=== PATIENT | female | born 1950 | race Caucasian/White ===

== ENCOUNTER 2016-08-25 11:08 | Emergency (ER) | payer OTHER ==
[~2016-08-25] VITALS: Ht 162.6 cm; Wt 111.1 kg
[2016-08-25] MEDS ORDERED: FISH OIL 1,2001 EACH PO (12:09)
[2016-08-25] MEDS ORDERED: CALTRATE 600 +1 EACH PO (12:09)
[2016-08-25] MEDS ORDERED: VITAMIN D34000 UNIT PO (12:10)
[2016-08-25] MEDS ORDERED: VITAMIN E400 UNI1 PO (12:11)
[2016-08-25] MEDS ORDERED: FLUOXETINE HCL40 M1 PO (12:11)
[2016-08-25] MEDS ORDERED: CLONAZEPAM1 M2 PO (12:11)
[2016-08-25] MEDS ORDERED: FIBER500 MG PO (12:12)
[2016-08-25] MEDS ORDERED: ATORVASTATIN CA20 M1 PO (12:12)
[2016-08-25] MEDS ORDERED: LEVOTHYROXINE100 MC1 PO (12:13)
[2016-08-25] MEDS ORDERED: DAILY MULTIPLE1 EACH PO (12:13)
[2016-08-25] MEDS ORDERED: ASPIRIN81 M4 PO (12:13)
[2016-08-25] MEDS ORDERED: GLIMEPIRIDE4 M1 PO (12:14)
[2016-08-25] MEDS ORDERED: GABAPENTIN600 M1 PO (12:14)
--- NOTE | 2016-08-25 12:27 | ED PSYCHIATRIC COMPLAINT ---
History of Present Illness General Chief Complaint: Psychiatric Related Complaint Stated Complaint: +SI Source: patient Exam Limitations: no limitations Allergies Coded Allergies: albuterol (From PROVENTIL HFA) (Intermediate, TACHYCARDIA 08/25/16) cefaclor (From CECLOR) (Intermediate, RASH 08/25/16) clarithromycin (From BIAXIN) (Intermediate, RASH 08/25/16) Uncoded Allergies: THEODURE (Intermediate, TACHYCARDA 08/25/16) Reconcile Medications Aspirin (Aspirin*) 81 MG TAB.CHEW 1 TAB PO DAILY HEART HEALTH (Reported) Atorvastatin Calcium 20 MG TABLET 1 TAB PO DAILY CHOLESTEROL (Reported) Calcium Carbonate/Vitamin D3 (Caltrate 600 + D Tablet) 600 MG-800 TABLET 1 TAB PO DAILY SUPPLEMENT (Reported) Cholecalciferol (Vitamin D3) (Vitamin D3) 4,000 UNIT CAPSULE 1 CAP PO DAILY SUPPLEMENT (Reported) Clonazepam 1 MG TABLET 1 TAB PO BID MENTAL HEALTH (Reported) Fish Oil/Dha/Epa (Fish Oil 1,200 MG Fish Oil) 1,200 MG-144 MG-216 MG CAPSULE 1 CAP PO DAILY SUPPLEMENT (Reported) Fluoxetine HCl 40 MG CAPSULE 2 CAP PO DAILY MENTAL HEALTH (Reported) Gabapentin 600 MG TABLET 1 TAB PO TID UNKNOWN (Reported) Glimepiride 4 MG TABLET 1 TAB PO DAILY DM (Reported) Levothyroxine Sodium 100 MCG TABLET 1 TAB PO DAILY AC THYROID (Reported) Methylcellulose (Fiber) 500 MG TABLET 1 TAB PO DAILY SUPPLEMENT (Reported) Multivitamin (Daily Multiple Vitamin) 1 EACH TABLET 1 TAB PO DAILY SUPPLEMENT (Reported) Vitamin E (Dl,Tocopheryl Acet) (Vitamin E) 400 UNIT CAPSULE 1 CAP PO DAILY SUPPLEMENT (Reported) Triage Note: C/O FEELING DEPRESSED, STATES HER SON TRIED TO CUT HIS WRISTS LAST WEEK AND IS HOSPITALIZED AT [facility]; THE SITUATION IS GIVING HER FLASHBACKS RE: HER OWN PREVIOUS ATTEMPTS AT SUICIDE, (OVER DOSING ON PILLS). STATES HE HAS BEEN THINKING ABOUT JUMPING IN FRONT OF CAR. SENT IN BY KENTRELL MCDANIEL (THERAPIST) ([facility]). PT NEEDS WALKER FOR AMBULATION DUE TO BILATERAL KNEE REPLACMENTS. Triage Nurses Notes Reviewed? yes HPI: 66-year-old female with depression here with complaints of suicidal thoughts. No organized attempt, but she has had chronic bouts of depression throughout her life. She was previously attempted suicide by taking pills. She currently states that over the last month or so she has been more depressed since her son tried to commit suicide about a month ago. He then, this past week, slit his wrists and is currently admitted at [facility] for depression. She feels as though that his recent episodes of depression and suicide attempts have caused her to be significant only more depressed. She denies any drug or alcohol use. She sees a psychiatric counselor regularly who recommended she comes in for evaluation. She has no medical complaints (OBDULIA REYES) Vital Signs & Intake/Output Vital Signs & Intake/Output Vital Signs Date Time Temp Pulse Resp B/P Pulse O2 O2 Flow FiO2 Ox Delivery Rate 08/26 0905 96.9 86 18 152/82 96 08/26 0629 98.1 69 18 144/88 93 Room Air 08/25 2233 98.4 89 16 141/65 90 Room Air 08/25 1829 84 16 150/76 92 Room Air 08/25 1457 95.6 72 16 145/76 90 Room Air 08/25 1326 Room Air 08/25 1126 96.7 86 20 138/81 96 Room Air ED Intake and Output 08/26 0000 08/25 1200 Intake Total Output Total Balance Patient 245 lb Weight Past History Travel History Traveled to [place] past 21 day No Medical History Any Pertinent Medical History? see below for history Cardiovascular: hyperlipidemia Respiratory: asthma Musculoskeletal: osteoarthritis Psychiatric: bipolar disease Endocrine: diabetes Blood Disorders: NONE Cancer(s): NONE Surgical History Surgical History: knee replacement Psychosocial History What is your primary language Luxembourger Tobacco Use: Never used ETOH Use: occasional use Family History Hx Contributory? No (OBDULIA REYES) Review of Systems Review of Systems Constitutional: Reports: see HPI. EENTM: Reports: no symptoms. Respiratory: Reports: no symptoms. Cardiovascular: Reports: no symptoms. GI: Reports: no symptoms. Genitourinary: Reports: no symptoms. Musculoskeletal: Reports: no symptoms. Skin: Reports: no symptoms. Neurological/Psychological: Reports: see HPI. Hematologic/Endocrine: Reports: no symptoms. Immunologic/Allergic: Reports: no symptoms. All Other Systems: Reviewed and Negative (OBDULIA REYES) Physical Exam Physical Exam General Appearance: well developed/nourished Head: atraumatic Eyes: Bilateral: PERRL, EOMI. 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 CRISIS CONSULT OBTAINED (LORE CHILDRESS,CHERYL Spain) Progress Hand-Off Endorsed To: LORE CHILDRESS,CHERYL Spain Endorsed Time: 1946 Pending: other (CRISIS RE EVAL IN AM) (OBDULIA REYES) Plan of Care: Orders Procedure Date/time Status Consistent Carbohydrate 2 08/26 B Active ED CRISIS PSYCH CONSULT 08/25 1301 Active URINE DRUG SCREEN FOR ER ONLY 08/25 1223 Complete URINALYSIS 08/25 1223 Complete ETHANOL 08/25 1223 Complete COMPREHENSIVE METABOLIC PANEL 08/25 1223 Complete CBC WITHOUT DIFFERENTIAL 08/25 1223 Complete Laboratory Tests 08/25/16 1410: Methadone Screen 48, Barbiturate Screen < 60, Ur Phencyclidine Scrn < 6.00, Amphetamines Screen < 100, U Benzodiazepines Scrn < 85, Urine Cocaine Screen < 50, Urine Cannabis Screen < 5.00, Urine Color YEL, Urine Clarity CLEAR, Urine pH 6.0, Ur Specific [place] 1.010, Urine Protein NEG, Urine Ketones NEG, Urine Nitrite NEG, Urine Bilirubin NEG, Urine Urobilinogen 0.2, Ur Leukocyte Esterase LARGE H, Ur Microscopic SEDIMENT EXAMINED, Urine RBC 1-3, Urine WBC 5-10 H, Ur Epithelial Cells RARE, Urine Bacteria MANY H, Urine Hemoglobin NEG, Urine Glucose NEG 08/25/16 1240: Anion Gap 8, Estimated GFR > 60, BUN/Creatinine Ratio 20.0, Glucose 82, Calcium 9.6, Total Bilirubin 0.6, AST 37 H, ALT 40, Alkaline Phosphatase 108, Total Protein 7.0, Albumin 3.8, Globulin 3.2, Albumin/Globulin Ratio 1.2, CBC w Diff NO MAN DIFF REQ, RBC 4.23, MCV 88.0, MCH 29.4, RDW 13.9, MPV 7.5, Gran % 57.4, Lymphocytes % 30.0, Monocytes % 7.9, Eosinophils % 4.3, Basophils % 0.4, Absolute Granulocytes 4.3, Absolute Lymphocytes 2.3, Absolute Monocytes 0.6, Absolute Eosinophils 0.3, Absolute Basophils 0, PUBS MCHC 33.4, Serum Alcohol < 10.0 Comments: 08/25/2016 5:35:12 PM patient has been evaluated by crisis and will be observed overnight. Hopefully she will be then discharged to an IOP appointment. (GWEN CHILDRESS,ROSINA Rucker) Differential Diagnosis: drug intoxication, drug overdose, drug withdrawal, electrolyte abnormality Hand-Off Endorsed To: NANCY GOYAL MD Endorsed Time: 0700 Pending: consult (CRISIS RE-EVAL) (LORE CHILDRESS,CHERYL Spain) Comments: Cleared by psychiatry for discharge. (NANCY GOYAL MD) Departure Departure Disposition: STILL A PATIENT Condition: Stable Clinical Impression Primary Impression: Depression Referrals: CHUN DEVRIES MD (PCP/Family) Departure Forms: Customer Survey General Discharge Information (OBDULIA REYES) Departure Time of Disposition: 936 Additional Instructions: Follow up with the recommendations of the psychiatric mental health nurse PA/TOUCHER UP Co-Sign Statement Statement: ED Attending supervision documentation- x I saw and evaluated the patient. I have also reviewed all the pertinent lab results and diagnostic results. I agree with the findings and the plan of care as documented in the PA's/TOUCHER UP's documentation. [] I have reviewed the ED Record and agree with the PA's/TOUCHER UP's documentation. [] Additions or exceptions (if any) to the PAs/TOUCHER UP's note and plan are summarized below: [] (NANCY GOYAL MD)
[2016-08-25 12:54] LABS: ABSOLUTE BASOPHIL COUNT 0 /CUMM (0.0-0.2); ABSOLUTE EOSINOPHIL COUNT 0.3 /CUMM (0.0-0.7); ABSOLUTE GRANULOCYTE CT 4.3 /CUMM (1.4-6.5); ABSOLUTE LYMPH COUNT 2.3 /CUMM (1.2-3.4); ABSOLUTE MONOCYTE COUNT 0.6 /CUMM (0.10-0.60); BASOPHIL % 0.4 % (0.0-2.0); EOSINOPHIL % 4.3 % (0-5); GRANULOCYTE % 57.4 % (42.2-75.2); HEMATOCRIT 37.3 % (37-47); MEAN CORPUSCULAR HGB 29.4 PG (27.0-31.0); MEAN CORPUSCULAR HGB CONC 33.4 G/DL (33.0-37.0); MEAN PLATELET VOLUME 7.5 FL (7.4-10.4); PLATELET COUNT 396 /CUMM (130-400); RBC DISTRIBUTION WIDTH 13.9 % (11.5-14.5); RED BLOOD CELL CT 4.23 /CUMM (4.20-5.40); WHITE BLOOD CELL COUNT 7.5 /CUMM (4.8-10.8)
--- NOTE | 2016-08-25 17:09 | ED PSYCH CRISIS CONSULTATION ---
See Addendum Crisis Consult Basic Assessment Date of Consult: 08/25/16 Responsible Person/Accompanied By: nasir Hawley APRN and ARMANDO Syed Insurance Authorization: Insurance #1: Insurance name: VICTOR M STEWART Phone number: Policy number: [id number] Group number: Authorization number: ED Provider: Patient's ED Provider: REGGIE REYES Primary Care Physician: Patient's PCP: CHUN HERRERA MD PCP's Phone Number: Current Psychiatrist: Nasir Hawley APRN Chief Complaint: Psychiatric Related Complaint Patient's Quote: "My son recently cut himself and makes me think of my SI attempt." Present Illness: Pt is 66 yo female with hx of a suicide attempt and SI. Per collateral information from her PCP and [employer] she has hx of bi-polar and borderline tendancies. Pt. is currently stressed about her son going into [facility] for cutting himself. She reported that his attempts have triggered her memories of her own SI attempt. She noted both her adult sons move in with her to [facility] 1 BR apartment. She is violating her lease with them both staying there. Her sons are Reggie and Gutierrez, one is a drug addict and the other with dx wiht schizophrenia. Pt reported she is ambivalent about them staying with her as she is unclear if she needs help with ADL's. Pt. reported one suicide attempt 8 years ago in [place] she drank a bottle of alcohol and took her "pills". The pt's recently in March 2016 due to diabetes. Pt stated her main concern is that she needs a break and has passive SI with no plan. Per Nasir Hawley APRN, she recommended Pt come to due to recent stressors of her adult sons moving in with her. She noted an increase in disorganzied thinking. Nasir reported that she had borederline tendancies in the past ie. abruptly moving to [place] for treatment 4/5 years ago. She stated this put a big financial stressor on the pt at that time. Per Nasir, the pt had neurospych testing completed that identified memory deficits. She is currently taking Prozac, Serquel and Klonapin. Nasir stated she is unclear if the Klonapin is contributing to some of the memory deficits. Nasir stated she would feel comfortable with pt receiving higher LOC such as IOP treatment. Per collateral information from Dr. Herrera: PCP verified pt has serious physical issues right now and needs to use a walker. PCP stated she is a bright bright woman and is suffering from memory difficulties. She has a fracture on her right foot. PCP is treating the whole family . PCP inidicates family difficulties and pt's "rough life" and would recommend IOP level of care. PCP did not report any incidents of SI. Patient's Address: [address] [place] [id number] Other Phone Number: Who Do You Live With? Son Family/Informants Interviewed: Family was not available Allergies - Coded Allergies: albuterol (From PROVENTIL HFA) (Intermediate, TACHYCARDIA 08/25/16) cefaclor (From CECLOR) (Intermediate, RASH 08/25/16) clarithromycin (From BIAXIN) (Intermediate, RASH 08/25/16) Uncoded Allergies: THEODURE (Intermediate, TACHYCARDA 08/25/16) Current Medications - Scheduled Medications Aspirin (Aspirin*) 81 MG TAB.CHEW 1 TAB PO DAILY HEART HEALTH (Reported) Entered as Reported by NATHANIEL BELCHER on 08/25/16 1213 Atorvastatin Calcium 20 MG TABLET 1 TAB PO DAILY CHOLESTEROL #90 (Reported) Entered as Reported by NATHANIEL BELCHER on 08/25/16 1212 Calcium Carbonate/Vitamin D3 (Caltrate 600 + D Tablet) 600 MG-800 TABLET 1 TAB PO DAILY SUPPLEMENT (Reported) Entered as Reported by NATHANIEL BELCHER on 08/25/16 1209 Cholecalciferol (Vitamin D3) (Vitamin D3) 4,000 UNIT CAPSULE 1 CAP PO DAILY SUPPLEMENT (Reported) Entered as Reported by NATHANIEL BELCHER on 08/25/16 1210 Clonazepam 1 MG TABLET 1 TAB PO BID MENTAL HEALTH #60 (Reported) Entered as Reported by NATHANIEL BELCHER on 08/25/16 1211 Fish Oil/Dha/Epa (Fish Oil 1,200 MG Fish Oil) 1,200 MG-144 MG-216 MG CAPSULE 1 CAP PO DAILY SUPPLEMENT (Reported) Entered as Reported by NATHANIEL BELCHER on 08/25/16 1209 Fluoxetine HCl 40 MG CAPSULE 2 CAP PO DAILY MENTAL HEALTH #60 (Reported) Entered as Reported by NATHANIEL BELCHER on 08/25/16 1211 Gabapentin 600 MG TABLET 1 TAB PO TID UNKNOWN #270 (Reported) Entered as Reported by NATHANIEL BELCHER on 08/25/16 1214 Glimepiride 4 MG TABLET 1 TAB PO DAILY DM #90 (Reported) Entered as Reported by NATHANIEL BELCHER on 08/25/16 1214 Levothyroxine Sodium 100 MCG TABLET 1 TAB PO DAILY AC THYROID #90 (Reported) Entered as Reported by NATHANIEL BELCHER on 08/25/16 1213 Methylcellulose (Fiber) 500 MG TABLET 1 TAB PO DAILY SUPPLEMENT (Reported) Entered as Reported by NATHANIEL BELCHER on 08/25/16 1212 Multivitamin (Daily Multiple Vitamin) 1 EACH TABLET 1 TAB PO DAILY SUPPLEMENT (Reported) Entered as Reported by NATHANIEL BELCHER on 08/25/16 1213 Vitamin E (Dl,Tocopheryl Acet) (Vitamin E) 400 UNIT CAPSULE 1 CAP PO DAILY SUPPLEMENT (Reported) Entered as Reported by NATHANIEL BELCHER on 08/25/16 1211 Laboratory Results: Laboratory Tests 08/25/16 1410: Methadone Screen 48, Barbiturate Screen < 60, Ur Phencyclidine Scrn < 6.00, Amphetamines Screen < 100, U Benzodiazepines Scrn < 85, Urine Cocaine Screen < 50, Urine Cannabis Screen < 5.00, Urine Color YEL, Urine Clarity CLEAR, Urine pH 6.0, Ur Specific [place] 1.010, Urine Protein NEG, Urine Ketones NEG, Urine Nitrite NEG, Urine Bilirubin NEG, Urine Urobilinogen 0.2, Ur Leukocyte Esterase LARGE H, Ur Microscopic SEDIMENT EXAMINED, Urine RBC 1-3, Urine WBC 5-10 H, Ur Epithelial Cells RARE, Urine Bacteria MANY H, Urine Hemoglobin NEG, Urine Glucose NEG 08/25/16 1240: Anion Gap 8, Estimated GFR > 60, BUN/Creatinine Ratio 20.0, Glucose 82, Calcium 9.6, Total Bilirubin 0.6, AST 37 H, ALT 40, Alkaline Phosphatase 108, Total Protein 7.0, Albumin 3.8, Globulin 3.2, Albumin/Globulin Ratio 1.2, CBC w Diff NO MAN DIFF REQ, RBC 4.23, MCV 88.0, MCH 29.4, RDW 13.9, MPV 7.5, Gran % 57.4, Lymphocytes % 30.0, Monocytes % 7.9, Eosinophils % 4.3, Basophils % 0.4, Absolute Granulocytes 4.3, Absolute Lymphocytes 2.3, Absolute Monocytes 0.6, Absolute Eosinophils 0.3, Absolute Basophils 0, PUBS MCHC 33.4, Serum Alcohol < 10.0 (EMANUEL NAVA,SHANA Hernandez.) Addendum Addendum Pt requesting evening medications (clonazepam and seroquel). Pt reports feeling well and is aware of plan to h/o and re-assess in the morning. Pt thinks an IOP would be beneficial. 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 Physical Limitations (Interventions): Pt needs to use a walker and has a right foot fracture. Psychiatric Treatment History Psych Treatment Psychiatric Treatment Yes Inpatient Treatment Yes Outpatient Treatment Yes Location of Treatment [facility] and IP in [place] 8 yrs ago. Reason for Treatment psychiatric and overdose. Dates of Treatment 8 years ago Response to Treatment Pt has been medication compliant. Diagnosis by History: Depression and borderline personality disorder. Pt has been in DBT treatment in [place]. Substance Use/Abuse History Drug Use/Abuse Substances Used/Abused No Substance Abuse Treatment Substance Abuse Treatment Past Substance Abuse [place] No (EMANUEL NAVA,SHANA Hernandez.) Current Mental Status Mental Status Orientation: Confused Affect: Anxious, Angry, Depressed Speech: Hyper-verbal, Perseveration Neuro-vegetative: Concentration Poor, Helpless, Loss of Interest Appearance Appearance- Dress/Hygiene: Pt was dressed in [facility] gown. Eye contact minimal. Behaviors Thought Process: Disorganized, Tangential Memory: Impaired Insight: Fair SI/HI Risk Assessment Past Suicidal Ideation/Attempts Yes Current Suicidal Ideation/Att No Past Homicidal Ideation/Att: No Current Homicidal Ideation/Attempts No Degree of Intent: None Risk Factors: high anxiety/distress, history of suicide atmpts, limited support Lethality Ratin (mild) PTSD Checklist PTSD Done? pt unable to participate ED Management Sitter: Yes Restraints: No (SHANA CASTELLANOS MS) DSM5/PS Stressors/Medical Prob Diagnosis' (DSM 5, Stressors, Medical): F32.9 unsepcified depression Current GAF: 38 Comments: Pt. has significant stressors and has some cognitive slipping. Pt's housing is at risk as her 2 adult sons are living with her in a 1 BR apartment at [place]. Her providers are recommending IOP level of care. Pt should be re-eval in a. m. And IOP finalized if that remains plan (SHANA CASTELLANOS MS) Departure Disposition Psych Medical Clearance Date: 08/25/16 Medically Cleared at: 1500 Time Started: 1505 Time Ended: 1550 Psychiatrist Consulted: Mark Date Disposition Established: 08/25/16 Time Disposition Established: 1610 Plan for Disposition - Modality: Re-evaluation with plan for IOP to be arranged in A.M.. Facility: [facility] Rationale for Disposition: patient not endorsing suicidal ideation. Patient depressed and dealing with numerous stressors. Hold over tonight with plan to arrange IOP based on treaters recommendations, unless pt worsens Referrals CHUN HERRERA MD (PCP/Family) (SHANA CASTELLANOS MS)
[2016-08-26 09:05] VITALS: BP 152/82
== END 2016-08-26 09:56 ==
LOC: ERH 11:08
PROVIDERS: Physician Assistant Surgical
DX: F32.9 Major depressive disorder, single episode, unspecified (principal); E11.9 Type 2 diabetes mellitus without complications
CPT/HCPCS: 80307; 81001; G0463; G0480